=== PATIENT | male | born 1995 | race Caucasian/White ===

== ENCOUNTER 2025-09-25 02:34 | Emergency (ER) | payer MEDICAID ==
[~2025-09-25] VITALS: Ht 172.7 cm; Wt 66.2 kg
[2025-09-25 04:36] VITALS: BP 127/70; TEMP 98.1; O2SAT 97
== END 2025-09-25 04:36 | disposition home or self-care (01) ==
LOC: ER 02:49
DX: F19.90 Other psychoactive substance use, unspecified, uncomplicated (principal); R73.9 Hyperglycemia, unspecified; Z60.2 Problems related to living alone
CPT/HCPCS: 82962-TC